=== PATIENT | male | born 1995 | race Caucasian/White ===

== ENCOUNTER 2017-09-18 02:16 | Emergency (ER) | payer OTHER ==
[2017-09-18 02:27] VITALS: TEMP 36.7; O2SAT 97
--- NOTE | 2017-09-18 02:28 | EMERGENCY ROOM VISIT NOTE ---
History Report prepared by Zaidaibe: Livia Quinonez Under the Supervision of: Dr. Kimberlyn Sinha D.O. First contact with patient: 02:14 Stated Complaint: ALCOHOL History of Present Illness The patient is a 22 year old male who presents to the Emergency Room with complaints of an episode of a alcohol overdose occurring just prior to arrival. Per EMS, the patient was found unresponsive at the [facility] apartment with his pants down. The patient is a [employer] student and came up for the [employer]onic. History limited secondary to intoxication. The patient notes that he smokes marijuana. Source of History: patient History Limited By: intoxication Onset: just prior to arrival Position: other (global) Quality: other (alcohol overdose) Timing: other (episode) Review of Systems ROS limited secondary to alcohol intoxication. Past Medical & Surgical Medical Problems: (1) No Known Active Medical Problems Family History No pertinent family history stated. Social History Alcohol Use: occasionally Drug Use: marijuana Occupation Status: student Current/Historical Medications Unable to Obtain Active Prescriptions or Reported Meds Allergies Coded Allergies: No Known Allergies (Unverified , 09/18/17) Physical Exam Vital Signs Date Time Temp Pulse Resp B/P (MAP) Pulse Ox O2 Delivery O2 Flow Rate FiO2 09/18/17 06:23 75 09/18/17 06:05 91 18 103/46 96 Room Air 09/18/17 05:00 75 18 110/53 94 Room Air 09/18/17 04:00 80 14 87/51 92 Room Air 09/18/17 03:00 97 18 141/85 98 Room Air 09/18/17 02:37 149 09/18/17 02:27 36.7 123 18 151/96 97 Room Air 09/18/17 02:27 97 Room Air Physical Exam General: Smells of alcohol. HEENT: Head - normocephalic and atraumatic Pupils are equal, round, and reactive to light. Extraocular eye muscles are intact, and sclera are anicteric. Nose - moist nasal mucosa without discharge. Mouth - moist buccal mucosa. Oropharynx is nonerythematous and there is no tonsillar exudate or edema noted. Neck: Supple; no JVD, nuchal rigidity, cervical lymphadenopathy. Heart: Regular rate and rhythm. There is a normal S1 and S2 with no murmurs, clicks, or gallops appreciated. Lungs: Clear to auscultation bilaterally with no wheezes, rales, or rhonchi. Abdomen: Soft, completely nontender, nondistended, with good bowel sounds. There are no palpable pulsatile masses or hepatosplenomegaly. There is no guarding, rigidity, or rebound noted. Extremities: No evidence of cyanosis, clubbing, or edema. There are easily palpable peripheral pulses. Skin: warm and dry with good turgor and no rashes. Medical Decision & Procedures Laboratory Results 09/18/17 02:27 Test 09/18/17 02:27 Anion Gap 9.0 mmol/L (3-11) Estimated GFR () 143.0 Estimated GFR (Non- 123.4 BUN/Creatinine Ratio 8.7 (10-20) Calcium Level 8.9 mg/dl (8.5-10.1) Ethyl Alcohol mg/dL 317.0 mg/dl (0-3) ED Course 0217: The patient was evaluated in room A11A. A complete history and physical exam was performed. The patient was placed in the prone position to avoid aspiration. He was observed on the teletypewriter operator and pulse oximeter. Laboratory studies were drawn as above. 0405: The patient remains sleeping is hemodynamically stable. 0515: The patient is asleep and his vitals are stable. 0730: The patient was signed out to Dr. Nunez at the change of shifts. Medical Decision The patient is a 22 year old male who presents to the Emergency Room with complaints of an episode of a alcohol overdose occurring just prior to arrival. Differential diagnosis: alcohol intoxication, drug overdose, hypothermia, head injury, hypoglycemia. Lab results show:alcohol 317, normal renal function, normal glucose The patient was brought to the emergency department tonight after consuming too much alcohol. He had no outward signs of trauma. He rested comfortably while here in the ER. The patient's blood sugar was significantly high and he will require some time to sober up. The case will be signed to Dr. Nunez at change of shift. Medication Reconcilliation Current Medication List: was personally reviewed by me Blood Pressure Screening Patient's blood pressure: Normal blood pressure Impression Primary Impression: Alcohol overdose Scribe Attestation The scribe's documentation has been prepared under my direction and personally reviewed by me in its entirety. I confirm that the note above accurately reflects all work, treatment, procedures, and medical decision making performed by me. Departure Information Prescriptions Unable to Obtain Active Prescriptions or Reported Meds Problem Qualifiers Primary Impression: Alcohol overdose Encounter type: initial encounter Injury intent: accidental or unintentional Qualified Codes: T51.91XA - Toxic effect of unspecified alcohol , accidental (unintentional), initial encounter
[2017-09-18 03:13] LABS: BLOOD UREA NITROGEN 8 mg/dl (7-18); BUN/CREATININE RATIO 8.7 (10-20); CALCIUM 8.9 mg/dl (8.5-10.1); CARBON DIOXIDE 24 mmol/L (21-32); CHLORIDE 108 mmol/L (98-107); CREATININE 0.87 mg/dl (0.60-1.40); GLUCOSE 97 mg/dl (70-99); POTASSIUM 3.7 mmol/L (3.5-5.1); SODIUM 141 mmol/L (136-145)
--- NOTE | 2017-09-18 09:48 | EMERGENCY ROOM VISIT NOTE ---
ED Visit Note First contact with patient: 07:11 22 yr old intoxicated male brought in by EMS after being heavily intoxicated at [facility], initially evaluated by Dr Sinha and signed out to me awaiting sobering up. Patient with no evidence nor history for trauma. Protecting airway and breathing comfortably throughout ED stay. EtOH positive. Monitored and discharged when awake, alert, oriented and denies any complaints. Discussed no further alcohol and the dangers of such heavy etoh consumption. Patient headed back to [place] today.
[2017-09-18 10:09] VITALS: BP 122/86; PULSE 78; O2SAT 98
== END 2017-09-18 10:12 | disposition home or self-care (01) ==
LOC: C.EDA 02:19
DX: T51.91XA Toxic effect of unspecified alcohol, accidental (unintentional), initial encounter (principal)